=== PATIENT | male | born 1955 | race Caucasian/White ===

== ENCOUNTER 2019-12-10 12:41 | Emergency (ER) | payer OTHER ==
[~2019-12-10] VITALS: Ht 177.8 cm; Wt 95.2 kg
== END 2019-12-10 14:34 | disposition home or self-care (01) ==
LOC: ER 12:41
DX: S62.522A Displaced fracture of distal phalanx of left thumb, initial encounter for closed fracture (principal); W22.8XXA Striking against or struck by other objects, initial encounter
CPT/HCPCS: 29130; 73130; 99283-25

== ENCOUNTER 2023-03-22 09:13 | Day surgery (SDC) | payer OTHER ==
[~2023-03-22] VITALS: Ht 177.8 cm; Wt 93.8 kg
--- NOTE | 2023-03-22 11:34 | NUR ---
03/22/23 1134 Martha Araya PILLOW UNDER HEAD, RIGHT KNEE POST, ARMS SECURED ON PADDED ARM BOARDS.
[2023-03-22 13:23] VITALS: BP 112/85
--- NOTE | 2023-03-22 13:30 | NUR ---
03/22/23 1330 Salma Mann THIS RN FOLLOWED UP WITH DR FULLER REGARDING REPORTED HEART RATE LESS THAN 50. [address] FULLER; DR CONTRERAS'D PT FOR DISCHARGE WITHOUT FURTHER ORDERS. PT CONTINUES TO DENY CHEST PAIN, NAUSEA, DIZZINESS. RN ENCOURAGED PT TO FOLLOW UP WITH PRIMARY CARE OR GO TO THE URGENT CARE/ER IF HE DEVELOPS CARDIAC SYMPTOMS. VSS CURRENTLY. PT DENIES PAIN.
== END 2023-03-22 13:54 | disposition home or self-care (01) ==
LOC: ORSCSDS 09:13
PROVIDERS: Orthopaedic Surgery
PROC: 0SBC4ZZ Excision of Right Knee Joint, Percutaneous Endoscopic Approach (ICD-10-PCS; principal; 2023-03-22 08:45)
DX: S83.241A Other tear of medial meniscus, current injury, right knee, initial encounter (principal); M17.11 Unilateral primary osteoarthritis, right knee
CPT/HCPCS: J0171; J0690; J1100; J1885; J2250; J2405; J2704; J2795; J3010; J7120